=== PATIENT | female | born 1965 | race Caucasian/White ===

== ENCOUNTER 2017-10-07 11:22 | Emergency (ER) | payer SELFPAY ==
[~2017-10-07] VITALS: Ht 154.9 cm; Wt 63.0 kg
[2017-10-07 12:30] LABS: URINE BILIRUBIN - DIPSTICK NEGATIVE (NEGATIVE); URINE BLOOD DIPSTICK SMALL (NEGATIVE); URINE COLOR YELLOW; URINE GLUCOSE - DIPSTICK NEGATIVE (NEGATIVE); URINE KETONE NEGATIVE (NEGATIVE); URINE NITRITE - DIPSTICK NEGATIVE (Negative); URINE PROTEIN - DIPSTICK NEGATIVE (NEG-TRACE); URINE UROBILINOGEN - DIPSTICK 0.2 E.U./dL (0.2)
[2017-10-07 12:35] LABS: ALBUMIN 4.4 g/dL (3.2-5.0); ALKALINE PHOSPHATASE 81 u/l (38-126); ANION GAP 15 (6-22 (CALC)); BILIRUBIN, TOTAL 0.3 mg/dL (0.0-1.4); BUN 11 mg/dL (7-17); BUN/CREATININE RATIO 14 (12-20 (CALC)); CARBON DIOXIDE 24 mmol/l (22-30); CHLORIDE 104 mmol/l (95-108); CREATININE 0.8 mg/dL (0.5-1.0); GFR > 60 ML/MIN (>=60 (CALC)); GFR FOR AFR.AMER. > 60 ML/MIN (>=60 (CALC)); GLUCOSE 101 mg/dL (65-105); POTASSIUM 3.9 mmol/l (3.5-5.1); SGOT/AST 22 u/l (14-36); SGPT/ALT 21 u/l (9-52); SODIUM 140 mmol/l (137-146); TOTAL PROTEIN 7.4 g/dL (6.3-8.2)
[2017-10-07 12:38] LABS: HEMATOCRIT 41.8 % (37.0-47.0); HEMOGLOBIN 13.8 g/dl (12.0-16.0); IMMATURE GRANULOCYTES 0.2 % (0.0-1.0); MEAN CELL VOLUME 89.1 fL CALC (80.0-100.0); MEAN CORPUSCULAR HGB 29.4 pG CALC (26.0-32.0); NEUT# 4.47 thou/uL (2.00-7.15); RED BLOOD COUNT 4.69 mill/uL (4.20-5.60)
[2017-10-07 12:47] LABS: MYOGLOBIN 22 ng/mL (0 - 62)
[2017-10-07 13:19] LABS: URINE CLARITY CLOUDY; URINE LEUK ESTERASE LARGE (NEGATIVE)
[2017-10-07 13:30] LABS: URINE BACTERIA MODERATE hpf; URINE SQUAMOUS EPITHELIAL CELL FEW EPI/hpf (0-FEW); URINE TRICHOMONAS FEW hpf; URINE WBC TNTC WBC/hpf (0-5)
[2017-10-07] MEDS ORDERED: CEPHALEXIN500 MG PO (15:12)
[2017-10-07 15:41] VITALS: BP 116/82
== END 2017-10-07 15:42 | disposition home or self-care (01) | DRG 690 ==
LOC: ED 11:22
PROVIDERS: Emergency Medicine
DX: N39.0 Urinary tract infection, site not specified (principal); B95.7 Other staphylococcus as the cause of diseases classified elsewhere; R05 Cough; R42 Dizziness and giddiness

== ENCOUNTER 2017-11-24 11:12 | Emergency (ER) | payer SELFPAY ==
[~2017-11-24] VITALS: Ht 154.9 cm; Wt 66.0 kg
[~2017-11-24 11:12] MED LIST: CEPHALEXIN500 MG PO
[2017-11-24] MEDS ORDERED: MONTELUKAST SOD10 MG PO (11:24)
[2017-11-24] MEDS ORDERED: AZELASTINE HCL0.15 % IN (11:25)
[2017-11-24] MEDS ORDERED: OMEPRAZOLE20 M2 PO (11:26)
[2017-11-24] MEDS ORDERED: ZYRTEC10 MG PO (11:26)
[2017-11-24] MEDS ORDERED: VENTOLIN H108 MCG/AC IN (11:27)
[2017-11-24] MEDS ORDERED: FLONASE AL50 MCG/ACT IN (11:27)
[2017-11-24] MEDS ORDERED: SYMBICORT1 AE1 IN (11:28)
[2017-11-24 12:13] LABS: HEMATOCRIT 43.1 % (37.0-47.0); IMMATURE GRANULOCYTES 0.1 % (0.0-1.0); MEAN CELL VOLUME 88.9 fL CALC (80.0-100.0); MEAN CORPUSCULAR HGB 28.9 pG CALC (26.0-32.0); MEAN CORPUSCULAR HGB CONC 32.5 g/L CALC (32.0-36.0); NEUT# 5.53 thou/uL (2.00-7.15); RED BLOOD COUNT 4.85 mill/uL (4.20-5.60); RED CELL DISTRI WIDTH 13.2 % (11.5-15.5)
[2017-11-24 12:14] LABS: URINE BILIRUBIN - DIPSTICK NEGATIVE (NEGATIVE); URINE BLOOD DIPSTICK NEGATIVE (NEGATIVE); URINE COLOR YELLOW; URINE GLUCOSE - DIPSTICK NEGATIVE (NEGATIVE); URINE KETONE NEGATIVE (NEGATIVE); URINE NITRITE - DIPSTICK NEGATIVE (Negative); URINE PROTEIN - DIPSTICK NEGATIVE (NEG-TRACE); URINE UROBILINOGEN - DIPSTICK 0.2 E.U./dL (0.2)
[2017-11-24 12:18] LABS: URINE CLARITY HAZY; URINE LEUK ESTERASE LARGE (NEGATIVE)
[2017-11-24 12:20] LABS: URINE BACTERIA FEW hpf; URINE EPITHELIAL CELLS FEW EPI/hpf (0-FEW)
[2017-11-24 12:27] LABS: ALBUMIN 4.4 g/dL (3.2-5.0); ALKALINE PHOSPHATASE 80 u/l (38-126); AMYLASE 78 u/l (30-110); ANION GAP 18 (6-22 (CALC)); BILIRUBIN, TOTAL 0.3 mg/dL (0.0-1.4); BUN 7 mg/dL (7-17); BUN/CREATININE RATIO 9 (12-20 (CALC)); CARBON DIOXIDE 27 mmol/l (22-30); CHLORIDE 101 mmol/l (95-108); CREATININE 0.8 mg/dL (0.5-1.0); GFR > 60 ML/MIN (>=60 (CALC)); GFR FOR AFR.AMER. > 60 ML/MIN (>=60 (CALC)); LIPASE 37 u/l (23-300); POTASSIUM 3.8 mmol/l (3.5-5.1); SGOT/AST 27 u/l (14-36); SGPT/ALT 26 u/l (9-52); SODIUM 142 mmol/l (137-146); TOTAL PROTEIN 7.9 g/dL (6.3-8.2)
[2017-11-24 12:39] LABS: MYOGLOBIN 18 ng/mL (0 - 62)
[2017-11-24 16:48] VITALS: BP 130/80
== END 2017-11-24 16:48 | disposition short-term general hospital (02) | DRG 392 ==
LOC: ED 11:12
PROVIDERS: Emergency Medicine
DX: R19.00 Intra-abdominal and pelvic swelling, mass and lump, unspecified site (principal); B95.1 Streptococcus, group B, as the cause of diseases classified elsewhere; J44.9 Chronic obstructive pulmonary disease, unspecified; R06.02 Shortness of breath; R10.84 Generalized abdominal pain; R14.0 Abdominal distension (gaseous); K21.9 Gastro-esophageal reflux disease without esophagitis

== ENCOUNTER 2021-07-13 21:34 | Emergency (ER) | payer MEDICAID ==
[~2021-07-13] VITALS: Ht 154.9 cm; Wt 50.0 kg
[2021-07-13 21:34] VITALS: BP 158/82
[~2021-07-13 21:34] MED LIST changes: +AZELASTINE HCL0.15 % IN; +FLONASE AL50 MCG/ACT IN; +IPRATROPIU0.5 MG/3 M IN; +MONTELUKAST SOD10 MG PO; +OMEPRAZOLE20 M2 PO; +PROAIR HFA IN; +PROAIR HFA108 MCG/AC; +SYMBICORT1 AE1 IN; +VENTOLIN H108 MCG/AC IN; +ZYRTEC10 MG PO
== END 2021-07-14 01:40 | disposition left against medical advice (07) ==
LOC: ED 21:34
DX: G93.40 Encephalopathy, unspecified (principal); M79.672 Pain in left foot; M79.671 Pain in right foot; F41.9 Anxiety disorder, unspecified; J44.9 Chronic obstructive pulmonary disease, unspecified; C56.9 Malignant neoplasm of unspecified ovary; Z79.899 Other long term (current) drug therapy; Z91.19 Patient's noncompliance with other medical treatment and regimen